=== PATIENT | male | born 1980 | race Caucasian/White ===

== ENCOUNTER 2016-06-01 02:15 | Emergency (ER) | payer BC, OTHER ==
[~2016-06-01] VITALS: Ht 180.3 cm; Wt 88.5 kg
--- NOTE | 2016-06-01 02:36 | ED Upper Extremity ---
General Chief Complaint: Upper Extremity Stated Complaint: RT ELBOW INJURY Source: patient Exam Limitations: no limitations History of Present Illness Time seen by provider: 02:21 Initial Comments PT IS [facility], STATES HE TRIPPED AND FELL TONIGHT AROUND 2300, AND LANDED ON BOTH HANDS OUTSTRETCHED STATES HE FELT A POP IN RIGHT FOREARM AREA SINCE THEN HE HAS HAD SWELLING AND DECREASED RANGE OF MOTION AND PAIN TO RIGHT ELBOW AREA. NO PARESTHESIAS OR DISTAL MOTOR DEFICITS PT IS RIGHT HANDED NO PRIOR INJURY TO THIS ARM NO OTHER INJURIES OR PAIN PCP: DR. GARCIA Allergies and Home Medications Allergies Coded Allergies: No Known Drug Allergies (Unverified , 06/01/16) Home Medications Hydrocodone/Ibuprofen 1 Each Tablet, 1-2 EACH PO Q4H, #20 Prescribed by: ANGEL ESCOBAR on 06/01/16 0314 Constitutional: no symptoms reported Respiratory: no symptoms reported Cardiovascular: no symptoms reported Gastrointestinal: no symptoms reported Genitourinary: no symptoms reported Musculoskeletal: see HPI Skin: no symptoms reported Psychiatric/Neurological: No Symptoms Reported Past Zdwjmih-Tburwb-Wvxbho Hx Patient Social History Smoking Status: Current Everyday Smoker Type Used: Cigarettes Recent Foreign Travel: No Contact w/Someone Who Travel: No Surgeries HX Surgeries: Yes (RIGHT CLAVICLE FX/ORIF; LEFT LABRAL/SHOULDER REPAIR; RIGHT HYDROCOELE/HERNIA SMALL CHILD) Surgeries: Abdominal, Appendectomy, Orthopedic Respiratory Hx Respiratory Disorders: No Cardiovascular Hx Cardiac Disorders: No Neurological Hx Neurological Disorders: No Genitourinary Hx Genitourinary Disorders: No Gastrointestinal Hx Gastrointestinal Disorders: No Musculoskeletal Hx Musculoskeletal Disorders: Yes (ORTHO SURGERIES) Musculoskeletal Disorders: Fractures Endocrine Hx Endocrine Disorders: No HEENT HX ENT Disorders: No Cancer Hx Cancer: No Psychosocial Hx Psychiatric Problems: No Integumentary HX Skin/Integumentary Disorder: No Physical Exam Vital Signs Vital Sign - Last 12Hours 06/01/16 02:23 Temp 98.8 Pulse 59 Resp 20 B/P (MAP) 150/97 Pulse Ox 98 O2 Delivery Room Air Capillary Refill : General Appearance: WD/WN, no apparent distress Cardiovascular: normal peripheral pulses, regular rate, rhythm Respiratory: normal breath sounds Gastrointestinal: soft Back: normal inspection Shoulder: normal inspection, non-tender, no evidence of injury Elbow/Forearm: Right, bone tenderness, limited ROM, pain, soft tissue tenderness, swelling Wrist: Yes normal inspection, Yes non-tender, Yes no evidence of injury, Yes normal ROM Hand: normal inspection, non-tender, no evidence of injury, normal ROM Neurologic/Tendon: normal sensation, normal motor functions, normal tendon functions Neurologic/Psychiatric: public relations director II-XII nml as tested, no motor/sensory deficits, alert, normal mood/affect, oriented x 3 Splinting and Joint Reduction : Pre-Proc Neuro Vasc Exam: normal Post-Proc Neuro Vasc Exam: normal Arm Sling: [place] Hand-Made Type: orthoglass Splint Application: Long Arm Progress/Results/Core Measures Results/Orders My Orders Orders - ANGEL ESCOBAR DO Elbow, Right, 3 Views (06/01/16 02:27) Splint Application Long Arm (06/01/16 02:56) Sling (06/01/16 02:56) Hydrocodone/Apap 7.5/325 Tab (Lortab 7. (06/01/16 03:15) Ibuprofen Tablet (Motrin Tablet) (06/01/16 03:15) Medications Given in ED Current Medications Medications Dose Ordered Sig/Anton Route Start Time Stop Time Status Last Admin Dose Admin Acetaminophen/ Hydrocodone Bitart 2 ea ONCE ONCE PO 06/01/16 03:15 06/01/16 03:16 DC 06/01/16 03:37 2 EA Ibuprofen 800 mg ONCE ONCE PO 06/01/16 03:15 06/01/16 03:16 DC 06/01/16 03:17 800 MG Vital Signs/I&O Vital Sign - Last 12Hours 06/01/16 06/01/16 06/01/16 06/01/16 02:23 03:17 03:37 03:40 Temp 98.8 98.8 98.8 98.8 Pulse 59 59 Resp 20 20 B/P (MAP) 150/97 Pulse Ox 98 98 O2 Delivery Room Air Diagnostic Imaging Comments XRAYS RIGHT ELBOW--RADIAL HEAD FRACTURE, PENDING RADIOLOGIST REVIEW Reviewed: Reviewed by Me Departure Impression Impression: Primary Impression: Fracture of radial head, right, closed Disposition: 01 HOME, SELF-CARE Condition: Stable Departure-Patient Inst. Referrals: ANGEL GARCIA MD (PCP) Primary Care Physician ORTHO 4 STATES Patient Instructions: Elbow Fracture (DC), How to Use a Shoulder Sling, SPLINT CARE Add. Discharge Instructions: WEAR SPLINT AND SLING AT ALL TIMES ICE TO AREA AT 20 MINUTE INTERVALS ELEVATE ARM MUCH POSSIBLE FOLLOW UP WITH ORTHO 4 STATES IN 1-2 DAYS FOR FURTHER CARE--OR WORKMAN'S COMP ORTHOPEDIC SURGEON All discharge instructions reviewed with patient and/or family. Voiced understanding. Scripts Hydrocodone/Ibuprofen (Hydrocodone-Ibuprofen 7.5-200) 1 Each Tablet 1-2 EACH PO Q4H for Pain, #20 TAB Prov: ANGEL ESCOBAR DO 06/01/16 ANGEL ESCOBAR DO Jun 01, 2016 02:36
[2016-06-01] MEDS ORDERED: HYDR-87 PO (03:14)
[2016-06-01] MEDS ORDERED: HYDROcodone/APAP 7.5 MG/325 MG (LORTAB, LORCET PLUS) TABLET PO ONE (03:15)
[2016-06-01] MEDS ORDERED: IBUPROFEN 800 MG (MOTRIN) TAB PO ONE (03:15)
[2016-06-01 03:40] VITALS: BP 150/97
--- NOTE | 2016-06-01 12:05 | Diagnostic Imaging Report ---
INDICATION: Injury to the elbow. Pain EXAMINATION: Right elbow 06/01/2016 FINDINGS: There is a joint effusion. There is a lucency through the radial head consistent with acute fracture with minimal step-off deformity noted. The remaining osseous structures are intact. There are no dislocations IMPRESSION: 1. Radial head fracture with secondary joint effusion as described above. Dictated by: Dictated on workstation # [id number]
--- OUTSIDE RECORDS SUMMARY | 2016-06-15 19:45 | XMS REPORT | Continuity of Care Document ---
Author Author [facility] Organization [facility] Address Unknown Phone Unavailable Allergies Active Description Code Type Severity Reaction Onset Reported/Identified Relationship to Patient Clinical Status Yes No Known Drug Allergies [id number] Drug Allergy Unknown N/ A 06/01/2016 Medications Problems Date Dx Coded Attending Type Code Diagnosis Diagnosed By 06/01/2016 ANGEL ESCOBAR DO Ot M25.421 EFFUSION, RIGHT ELBOW 06/01/2016 ANGEL ESCOBAR DO Ot S52.121A DISP FX OF HEAD OF RIGHT RADIUS, INIT FO 06/01/2016 ANGEL ESCOBAR DO Ot S59.911A UNSPECIFIED INJURY OF RIGHT FOREARM, INI 06/01/2016 ANGEL ESCOBAR DO Ot W01.0XXA FALL SAME LEV FROM SLIP/TRIP W/O STRIKE 06/01/2016 SHAWN DOANGEL K Ot Y99.0 CIVILIAN ACTIVITY DONE FOR INCOME OR PAY 06/02/2016 ANGEL ESCOBAR DO Ot M25.421 EFFUSION, RIGHT ELBOW 06/02/2016 ANGEL ESCOBAR DO K Ot S52.121A DISP FX OF HEAD OF RIGHT RADIUS, INIT FO 06/02/2016 ANGEL ESCOBAR DO Ot S59.911A UNSPECIFIED INJURY OF RIGHT FOREARM, INI 06/02/2016 ANGEL ESCOBAR DO Ot W01.0XXA FALL SAME LEV FROM SLIP/TRIP W/O STRIKE 06/02/2016 SHAWN DO ANGEL K Ot Y99.0 CIVILIAN ACTIVITY DONE FOR INCOME OR PAY 06/05/2016 ANGEL ESCOBAR DO Ot M25.421 EFFUSION, RIGHT ELBOW 06/05/2016 ANGEL ESCOBAR DO Ot S52.121A DISP FX OF HEAD OF RIGHT RADIUS, INIT FO 06/05/2016 ANGEL ESCOBAR DO Ot S59.911A UNSPECIFIED INJURY OF RIGHT FOREARM, INI 06/05/2016 ANGEL ESCOBAR DO Ot W01.0XXA FALL SAME LEV FROM SLIP/TRIP W/O STRIKE 06/05/2016 ANGEL ESCOBAR DO Ot Y99.0 CIVILIAN ACTIVITY DONE FOR INCOME OR PAY Procedures Results Encounters ACCT No. Visit Date/Time Discharge Status Pt. Type Provider Facility Loc./Unit Complaint [id number] 06/01/2016 02:20:00 2016 03:40:00 DIS Emergency ANGEL ESCOBAR DO [facility] ER RT ELBOW INJURY [id number] 11/26/2014 08:50:00 2014 23:59:59 CLS Outpatient CHELSEA NOLAND [facility] OCC
== END 2016-06-01 03:40 | disposition home or self-care (01) ==
LOC: EDUNIT# 02:15 → ER 02:20
DX: S52.121A Displaced fracture of head of right radius, initial encounter for closed fracture (principal); M25.421 Effusion, right elbow; W01.0XXA Fall on same level from slipping, tripping and stumbling without subsequent striking against object, initial encounter; Y99.0 Civilian activity done for income or pay
CPT/HCPCS: 29105; 73080